=== PATIENT | male | born 1985 | race Caucasian/White ===

== ENCOUNTER 2020-03-09 16:22 | Emergency (ER) | payer OTHER ==
[~2020-03-09] VITALS: Ht 170.2 cm; Wt 99.8 kg
[2020-03-09 16:28] VITALS: BP 120/81
--- NOTE | 2020-03-09 17:00 | NUR ---
C/O LUQ PAIN RADIATING TO THE RUQ AND TO THE CENTER OF HIS BACK & L SHOULDER 8/10 AND SHARP/STABBING X4 DAYS. PT STATES THE PAIN INCREASES WHEN HE EATS. LBM TODAY AND REGULAR PER PT. ABD. SOFT FLAT AND NON TENDER TO PALPATION. BOWEL SOUNDS PRESENT X4. DENIES N/V/F, DYSURIA. BED IN LOW POSITION, SIDE RAIL UP X1.
--- NOTE | 2020-03-09 17:01 | NUR ---
DR. RAMOS AT BEDSIDE
--- NOTE | 2020-03-09 17:21 | NUR ---
Patient being evaluated by dr tirado at bedside.
[2020-03-09 17:56] LABS: BASOPHILS # (AUTO) 0.1 K/uL (0.00-0.22); BASOPHILS % (AUTO) 1.3 % (0.0-2.0); EOSINOPHILS # (AUTO) 0.3 K/uL (0-0.4); EOSINOPHILS % (AUTO) 5.4 % (0.0-4.0); HEMATOCRIT 41.1 % (36-52); HEMOGLOBIN 13.7 g/dL (12.0-18.0); LYMPHOCYTES # (AUTO) 2.3 K/uL (2.0-11.5); LYMPHOCYTES % (AUTO) 43.9 % (20.5-51.1); MEAN CORPUSCULAR HEMOGLOBIN 30 pg (27-31); MEAN CORPUSCULAR HGB CONC 33 g/dL (33-37); MONOCYTES # (AUTO) 0.3 K/uL (0.8-1.0); MONOCYTES % (AUTO) 6.6 % (1.7-9.3); NEUTROPHILS # (AUTO) 2.3 K/uL (1.8-7.7); NEUTROPHILS % (AUTO) 42.8 % (42.2-75.2); PLATELET COUNT (AUTO) 147 K/uL (140-450); RED BLOOD CELL COUNT(AUTO) 4.51 MIL/uL (4.20-6.10); RED CELL DISTRIBUTION WIDTH 13.6 % (11.6-13.7); WHITE BLOOD COUNT (AUTO) 5.3 K/uL (4.8-10.8)
[2020-03-09 18:17] LABS: ALBUMIN 3.9 g/dL (3.4-5.0); CARBON DIOXIDE 32.1 mmol/L (21-32); CREATININE 1.1 mg/dL (0.6-1.3); POTASSIUM 4.1 mmol/L (3.5-5.1); TOTAL BILIRUBIN 0.3 mg/dL (0.0-1.0)
--- NOTE | 2020-03-09 19:06 | NUR ---
PT RESTING IN BED, NO NEW NEEDS AT THIS TIME.
--- NOTE | 2020-03-09 19:14 | NUR ---
RECEIVED REPORT FROM TORIE CAMPOS. WILL CONT CARE AT THIS TIME.
[2020-03-09 19:39] LABS: APPEARANCE,URINE CLEAR (CLEAR); BILIRUBIN,URINE NEGATIVE (NEGATIVE); BLOOD, URINE NEGATIVE (NEGATIVE); COLOR,URINE YELLOW (YELLOW); LEUKOCYTE ESTERASE ,URINE NEGATIVE (NEGATIVE); NITRITE, URINE NEGATIVE (NEGATIVE); UGLUCOSE NEGATIVE (NEGATIVE)
[2020-03-09 19:47] VITALS: BP 134/83
--- NOTE | 2020-03-09 19:47 | NUR ---
Patient discharged with v/s stable. Written and verbal after care instructions given and explained. Patient alert, oriented and verbalized understanding of instructions. Ambulatory with steady gait. All questions addressed prior to discharge. ID band removed. Patient advised to follow up with PMD. Rx of OMEPRAZOLE AND MYLANTA given. Patient educated on indication of medication including possible reaction and side effects. Opportunity to ask questions provided and answered.
== END 2020-03-09 19:47 | disposition home or self-care (01) ==
LOC: MED 16:22
DX: R10.13 Epigastric pain (principal); M25.512 Pain in left shoulder
CPT/HCPCS: 36415; 76705; 80053; 81003; 83690; 85025; 99284; Q0092

== ENCOUNTER 2020-10-21 14:07 | Emergency (ER) | payer OTHER, SELFPAY ==
--- NOTE | 2020-10-21 14:46 | NUR ---
PATIENT LEFT WITHOUT BEING SEEN BY DR. BURCIAGA. NO FURTHER CARE PROVIDED FOR PATIENT.
== END 2020-10-21 14:46 | disposition left against medical advice (07) ==
LOC: MED 14:07
DX: R06.02 Shortness of breath (principal); Z53.21 Procedure and treatment not carried out due to patient leaving prior to being seen by health care provider